=== PATIENT | male | born 1960 | race African-American/Black ===

== ENCOUNTER 2018-02-11 13:35 | Emergency (ER) | payer SELFPAY ==
[2018-02-11] MEDS ORDERED: DIPHENHYDRAMINE HCL 50 MG/ML VIAL IV ONE (14:10)
[2018-02-11] MEDS ORDERED: METOCLOPRAMIDE HCL INJ/PF 10 MG/2 ML SDV IV ONE (14:10)
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
[2018-02-11] MEDS: NORMAL SALINE 1000 ML 1,000 ML IV PRN ×2 (14:26→15:27)
[2018-02-11 14:44] LABS: ABSOLUTE BASOPHILS # (AUTO) 0.1 10^3/uL (0.0-0.2); ABSOLUTE LYMPHOCYTES (AUTO) 1.7 10^3/uL (0.5-4.7); ABSOLUTE MONOCYTES (AUTO) 0.6 10^3/uL (0.1-1.4); BASOPHILS % (AUTO) 0.7 % (0-2); EOSINOPHILS % (AUTO) 0.1 % (0-6); HEMATOCRIT 38.5 % (37.9-51.0); HEMOGLOBIN 12.7 g/dL (13.5-17.0); LYMPHOCYTES % (AUTO) 17.6 % (13-45); MEAN CORPUSCULAR HEMOGLOBIN 25.6 pg (27.0-33.4); MEAN CORPUSCULAR HGB CONC 32.9 g/dL (32.0-36.0); MEAN CORPUSCULAR VOLUME 78 fl (80-97); MONOCYTES % (AUTO) 6.6 % (3-13); PLATELET COUNT 458 10^3/uL (150-450); RED BLOOD COUNT 4.95 10^6/uL (4.35-5.55); RED CELL DISTRIBUTION WIDTH 21.2 % (11.5-14.0); TOTAL CELLS COUNTED % (AUTO) 100 %; WHITE BLOOD COUNT 9.4 10^3/uL (4.0-10.5)
[2018-02-11 15:04] LABS: ALANINE AMINOTRANSFERASE 25 U/L (21-72); ALBUMIN 4.8 g/dL (3.5-5.0); ALKALINE PHOSPHATASE 110 U/L (38-126); ANION GAP 14 (5-19); ASPARTATE AMINO TRANSFERASE 42 U/L (17-59); BILIRUBIN,DIRECT 0.4 mg/dL (0.0-0.4); BILIRUBIN,TOTAL 0.7 mg/dL (0.2-1.3); BLOOD UREA NITROGEN 13 mg/dL (7-20); CARBON DIOXIDE 27 mmol/L (22-30); CHLORIDE 96 mmol/L (98-107); GLUCOSE 98 mg/dL (75-110); POTASSIUM 3.7 mmol/L (3.6-5.0); SODIUM 137.2 mmol/L (137-145); TOTAL PROTEIN 9.5 g/dL (6.3-8.2)
[2018-02-11] MEDS ORDERED: ONDANSETRON ODT 4 MG TAB (6 TAB/ER DISP) PO PRN (16:32)
[2018-02-11 16:34] VITALS: BP 136/86
== END 2018-02-11 16:35 | disposition home or self-care (01) ==
LOC: ER 13:35
DX: R11.2 Nausea with vomiting, unspecified (principal)
CPT/HCPCS: 99283; 96361; 96374; 96375; 36415; 85025; 80053; J1200; J2765

== ENCOUNTER 2018-11-28 11:09 | Emergency (ER) | payer SELFPAY ==
[2018-11-28] MEDS ORDERED: ONDANSETRON HCL INJ/PF 4 MG/2 ML SDV IV ONE ×2 (11:23→16:05)
--- NOTE | 2018-11-28 11:24 | ER Document Report ---
ED Medical Screen (RME) - General Chief Complaint: Abdominal Pain >50 Stated Complaint: STOMACH PAIN/VOMITING Time Seen by Provider: 11/28/18 11:22 Primary Care Provider: NICOLE STEVENSON [Primary Care Provider] - Follow up as needed Mode of Arrival: Wheelchair Information source: Patient Notes: 57-year-old male presented to ED for complaint of abdominal pain nausea and v omiting. He denies any diarrhea. He states just feels weak and sleepy. 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 He states he lives alone. Patient is alert oriented but states he is feeling very weak tired and sleepy. I have greeted and performed a rapid initial assessment of this patient. A comprehensive ED assessment and evaluation of the patient, analysis of test results and completion of medical decision making process will be conducted by an additional ED providers. Dictation of this chart was performed using voice recognition software; therefore, there may be some unintended grammatical errors. TRAVEL OUTSIDE OF THE [place] IN LAST 30 DAYS: No - Related Data Allergies/Adverse Reactions: No Known Allergies Allergy (Verified 11/28/18 11:09) Past Medical History - Social History Chew tobacco use (# tins/day): No Frequency of alcohol use: Occasional Family history: None Renal/ Medical History: Denies: Hx Peritoneal Dialysis Physical Exam - Vital signs Vitals: Temp Pulse Resp BP Pulse Ox 98.0 F 49 L 14 154/84 H 100 11/28/18 11:19 11/28/18 11:19 11/28/18 11:19 11/28/18 11:19 11/28/18 11:19 Course - Vital Signs Vital signs: Temp Pulse Resp BP Pulse Ox 98.0 F 49 L 14 154/84 H 100 11/28/18 11:19 11/28/18 11:19 11/28/18 11:19 11/28/18 11:19 11/28/18 11:19 Doctor's Discharge - Discharge Referrals: NICOLE STEVENSON [Primary Care Provider] - Follow up as needed
[2018-11-28] MEDS: NORMAL SALINE 1000 ML 1,000 ML IV PRN ×2 (12:59→14:41)
--- NOTE | 2018-11-28 14:21 | ER Document Report ---
HPI - HPI Patient complains to provider of: epigastric abdominal pain, vomiting, and constipation Time Seen by Provider: 11/28/18 11:22 Onset/Duration: Gradual, Intermittent Quality of pain: Burning, Cramping Pain Level: 2 Context: 58 yr old male pt with the listed pmh, here for a few episodes of nonbloody nonbilious vomiting, constipation, and epigastric abdominal pain for 2 days. feels like he may have gerd or an ulcer. states sx started after he drank a bunch of different types of etoh with friends the night prior to two days ago. states usually he doesn't drink like that or that much. no trauma or injury. no hx of diabetes or asthma. no uti sx. no testicular pain/swelling, penile dc/rash/lesions, or concerns for stds. denies swelling or hx of hernias. no abd surgeries unless otherwise noted. no recent abx or steroids. hasn't taken anything for sx. no hx of gerd, gb dz, pancreatitis, gi bleed, ulcers, ibs, or crohns. no hx of this before. he takes no meds regularly. no sick contacts. no uri sx. no rash. no excessive nsaid use. no recent illness. pain a little worse with eating. denies changes in color or caliber of stool. no melena or brbpr. no hemorrhoids or rectal pain. no blood thinners. Pt denies any prior personal cardiac history. denies any family history of sudden or cardiac dz at a young age. no syncope. no palpitations. no hx of mi, cva, tia, or cad. no ripping or tearing sensation. No prior history of blood clots. No recent long distance travel/immobilization, recent surgery, exogenous hormone use, hemoptysis, history of cancer, or calf pain/swelling. No prior history of arrhythmias. no other associated sx. Associated Symptoms: Nausea, Vomiting. denies: Chest pain, Nonproductive cough, Productive cough, Diarrhea, Fever, Headache, Hurts to breath, Leg swelling Exacerbated by: Movement, Food Relieved by: Remaining still Similar symptoms previously: No Recently seen / treated by doctor: No - ROS Systems Reviewed and Negative: Yes All other systems reviewed and negative - to include 10, unless mentioned in the hpi - DERM Skin Color: Normal Past Medical History - General Information source: Patient - Social History Smoking Status: Never Smoker Cigarette use (# per day): No Chew tobacco use (# tins/day): No Frequency of alcohol use: Occasional Drug Abuse: Marijuana - occasional Family History: Reviewed & Not Pertinent Patient has suicidal ideation: No Patient has homicidal ideation: No - Past Medical History Cardiac Medical History: Reports: None Pulmonary Medical History: Reports: None Endocrine Medical History: Reports: None Renal/ Medical History: Denies: Hx Kidney Stones, Hx Peritoneal Dialysis Malignancy Medical History: Reports None GI Medical History: Reports: None Past Surgical History: Reports: Hx Orthopedic Surgery - right partial thumb amputation with revision - Immunizations Immunizations up to date: Yes Vertical Provider Document - CONSTITUTIONAL Notes: >>>> PHYSICAL_EXAM: GENERAL_APPEARANCE: well_nourished, alert, cooperative, no_acute_distress, mild obvious_discomfort. Pleasant, middle aged black male, smiling, speaking in full sentences, easily sitting up, in no sign of pain or resp distress, nontoxic, no one is with him, he has an emesis bag in hand. no active vomiting on my exam. some dry heaves. VITALS: reviewed, see vital signs table. HEAD: normocephalic. atraumatic. no nobles signs. no raccoon eyes. EYES: PERRL, EOMI, (-)scleral icterus. NOSE: no_nasal_discharge. MOUTH: (-)decreased moisture. THROAT: no_tonsilar_inflammation/hypertrophy/exudate. no lymphadenopathy NECK: supple, no_neck_tenderness, full rom. full strength. no meningeal signs. BACK: no_back_tenderness. CHEST_WALL: no_chest_tenderness. LUNGS: no_wheezing, (-)accessory muscle use, good air exchange bilateral. HEART: normal_rate, normal_rhythm,, ABDOMEN: normal_BS, soft, abdomen-diffuse, mildly ttp diffusely, worse in the epigastrium, not so much when distracted, (-)guarding, (-)rebound, no distension or peritoneal signs. neg murphys. neg mcburneys. neg heel strike. neg obturator. neg psoas. neg rovsign. no cva tenderness GENITALS: deferred RECTAL: deferred EXTREMITIES: strength 5/5 in all_extremities, good pulses in all_extremities, no_edema, no_swelling\tenderness. full rom. normal gait. brisk cap refill. good hand glass sander belt. chronic appearing well healed surgery/partial amputation of right yesi mb. no sign of complication. SKIN: warm, dry, good_color, no rash. no grossly visible overlying skin changes to suggest trauma unless otherwise noted. NEURO: motor_intact, sensory_intact. cranial nerves 2-12 intact, cerebellar fxn intact MENTAL_STATUS: normal_affect, speech_clear, oriented_X_3, responds_appropriately to questions. - INFECTION CONTROL TRAVEL OUTSIDE OF THE [place] IN LAST 30 DAYS: No Course - Re-evaluation Re-evalutation: 11/28/18 14:21 pt here for epigastric abd pain, constipation, and a few episodes of nonbloody nonbilious vomiting x 2 days after what sounds like a night of binge drinking as usually he doesn't drink much liquor, in excess, or often per pt, and have several different types of etoh the night prior to sx onset. labs notable for a mild anemia which is minimally lower from last old comparison which is about a year ago however, a mildly elevated lipase, but were otherwise unremarkable. ekg unremarkable per dr swanson/natalya. acute abd series showed an abnormal bowel gas pattern, some air fluid levels, and excessive stool in the ascending colon and recommended ct abd/pelv with iv and oral contrast for further eval per rad and reviewed by myself. secondary to this, a ct abd and pelv with iv contrast was ordered as pt at the time couldn't tolerate po contrast, and showed mild small bowel wall thickening and mesenteric inflammatory changes -free fluid, probable enteritis, no dilatation to suggest obstruction, a 7.6 cm length by 2.6 x 2.2 cm cystic area adjacent to the right acetabulum and tracking into the gluteus minimus -medius muscular junction, possibly a large paralabral cyst however other etiologies cannot be excluded, rad recommended MRI with contrast would be useful to further characterize this likely cyst per rad and reviewed by myself. pt informed of his findings. he responded well to tx here. he is tolerating po and pain controlled. he denies blood in his stool or melena and endorses normal bms. no prior hx of anemia or ulcers or gi bleed. serial abd exams remain benign. will dc with prilosec and zofran. advised sx care. advised bland diet and avoid nsaids and etoh. advised to f/u with pcp/gi in 1-2 days. return for any worsening symptoms. vss. well appearing. satting well on ra. neurononfocal. pt understands and agrees to plan. On reexam, pt improved with tx listed. remained stable. nontoxic. well appearin g. pain controlled. tolerating po. requesting to go home. serial abd exams remain benign case discussed with ER Attending, Dr. haas, who directed and agrees with plan of care and advised no further workup indicated at this time and pt is stable for dc home with close f/u with pcp/specialist. Documentation achieved through voice recording which my lead to some occasional accidental typographical errors. Extensive efforts have been made to proof read documentation to make sure these are the least as possible. Category Date Time Status EKG Documentation STAT Care 11/28/18 11:25 Completed ACUTE ABDOMEN SERIES [RAD] Stat Exams 11/28/18 16:[address] ABD/PELVIS WITH IV ONLY [CT] Stat Exams 11/28/18 17:08 Completed CBC WITH DIFF [HEME] Stat Lab 11/28/18 16:50 Completed COMPREHENSIVE METABOLIC PANEL [CHEM] Stat Lab 11/28/18 16:50 Completed LIPASE [CHEM] Stat Lab 11/28/18 16:50 Completed MANUAL DIFFERENTIAL [HEME] Stat Lab 11/28/18 16:50 Completed TROPONIN I [CHEM] Stat Lab 11/28/18 16:50 Completed URINALYSIS [URIN] Stat Lab 11/28/18 14:00 Completed URINE CULTURE [MC] Stat Lab 11/28/18 14:00 Completed Lidocaine HCl [Xylocaine 2% Viscous Soln 20 ml Udcup] Med 11/28/18 16:02 Discontinued 15 ml PO NOW ONE Mag Hydrox/Al Hydrox/Simeth [Maalox Plus Susp 30 Udcup] Med 11/28/18 16:02 Discontinued 30 ml PO NOW ONE Normal Saline 1000 ml [NaCl 0.9% 1000 ml IV Soln] 1,000 Med 11/28/18 11:22 Discontinued ml IV X 2 BAGS Ondansetron HCl/Pf [Zofran Inj/Pf 4 mg/2 ml Sdv] Med 11/28/18 11:23 Discontinued 4 mg IV NOW ONE Ondansetron HCl/Pf [Zofran Inj/Pf 4 mg/2 ml Sdv] Med 11/28/18 16:05 Discontinued 4 mg IV NOW ONE EKG ER ONLY [ER] Stat Oth 11/28/18 Completed - Vital Signs Vital signs: Temp Pulse Resp BP Pulse Ox 98.0 F 49 L 14 154/84 H 100 11/28/18 11:19 11/28/18 11:19 11/28/18 11:19 11/28/18 11:19 11/28/18 11:19 Temp Pulse Pulse Resp BP BP Pulse Ox 11/28/18 21:06 98.3 F 55 L 18 124/76 97 11/28/18 15:06 98.6 F 56 L 16 148/84 H 100 11/28/18 11:19 98.0 F 49 L 14 154/84 H 100 - Laboratory Result Diagrams: 11/28/18 16:50 11/28/18 16:50 Laboratory results interpreted by me: 11/28/18 20:24 Labs- Entire Visit 11/28/18 11/28/18 11/28/18 14:00 16:50 16:50 WBC 5.0 RBC 4.64 Hgb 10.1 L Hct 33.3 L MCV 72 L MCH 21.8 L MCHC 30.4 L RDW 21.2 H Plt Count 443 Total Counted 100 Seg Neutrophils % Not Reportable Seg Neuts % (Manual) 68 Lymphocytes % Not Reportable Lymphocytes % (Manual) 18 Monocytes % Not Reportable Monocytes % (Manual) 13 Eosinophils % Not Reportable Eosinophils % (Manual) 0 Basophils % Not Reportable Basophils % (Manual) 1 Absolute Neutrophils Not Reportable Abs Neuts (Manual) 3.4 Absolute Lymphocytes Not Reportable Abs Lymphs (Manual) 0.9 Absolute Monocytes Not Reportable Abs Monocytes (Manual) 0.7 Absolute Eosinophils Not Reportable Absolute Eos (Manual) 0.0 Absolute Basophils Not Reportable Abs Basophils (Manual) 0.1 Platelet Comment ADEQUATE Hypochromasia 3+ Poikilocytosis 1+ Anisocytosis 3+ Microcytosis 1+ Target Cells 1+ Sodium 137.3 Potassium 4.1 Chloride 100 Carbon Dioxide 28 Anion Gap 9 BUN 8 Creatinine 0.89 Est GFR ( Amer) > 60 Est GFR (Non-Af Amer) > 60 Glucose 119 H Calcium 9.1 Total Bilirubin 0.4 Direct Bilirubin 0.2 Neonat Total Bilirubin Not Reportable Neonat Direct Bilirubin Not Reportable Neonat Indirect Bili Not Reportable AST 23 ALT 20 L Alkaline Phosphatase 72 Troponin I Total Protein 7.4 Albumin 4.0 Lipase 474.9 H Urine Color YELLOW Urine Appearance CLOUDY Urine pH 9.0 Ur Specific Oneco 1.025 Urine Protein 100 H Urine Glucose (UA) NEGATIVE Urine Ketones NEGATIVE Urine Blood NEGATIVE Urine Nitrite NEGATIVE Urine Bilirubin NEGATIVE Urine Urobilinogen NEGATIVE Ur Leukocyte Esterase NEGATIVE Urine RBC (Auto) 11 Urine Bacteria (Auto) TRACE Squamous Epi Cells Auto 1 Amorphous Sediment Auto TRACE Urine Mucus (Auto) OCC Urine Ascorbic Acid 40 H 11/28/18 16:50 WBC RBC Hgb Hct MCV MCH MCHC RDW Plt Count Total Counted Seg Neutrophils % Seg Neuts % (Manual) Lymphocytes % Lymphocytes % (Manual) Monocytes % Monocytes % (Manual) Eosinophils % Eosinophils % (Manual) Basophils % Basophils % (Manual) Absolute Neutrophils Abs Neuts (Manual) Absolute Lymphocytes Abs Lymphs (Manual) Absolute Monocytes Abs Monocytes (Manual) Absolute Eosinophils Absolute Eos (Manual) Absolute Basophils Abs Basophils (Manual) Platelet Comment Hypochromasia Poikilocytosis Anisocytosis Microcytosis Target Cells Sodium Potassium Chloride Carbon Dioxide Anion Gap BUN Creatinine Est GFR ( Amer) Est GFR (Non-Af Amer) Glucose Calcium Total Bilirubin Direct Bilirubin Neonat Total Bilirubin Neonat Direct Bilirubin Neonat Indirect Bili AST ALT Alkaline Phosphatase Troponin I < 0.012 Total Protein Albumin Lipase Urine Color Urine Appearance Urine pH Ur Specific Oneco Urine Protein Urine Glucose (UA) Urine Ketones Urine Blood Urine Nitrite Urine Bilirubin Urine Urobilinogen Ur Leukocyte Esterase Urine RBC (Auto) Urine Bacteria (Auto) Squamous Epi Cells Auto Amorphous Sediment Auto Urine Mucus (Auto) Urine Ascorbic Acid - Diagnostic Test Radiology reviewed: Image reviewed, Reports reviewed Radiology results interpreted by me: 11/28/18 20:24 Acute Abdomen Series 11/28/18 16:02 IMPRESSION: Large amount of stool in the ascending colon. Abnormal air-fluid levels in small bowel loops in the left upper quadrant. Abnormal bowel gas pattern. Consider follow-up CT abdomen pelvis with oral and IV contrast Abdomen/Pelvis CT 11/28/18 17:08 IMPRESSION: Mild small bowel wall thickening and mesenteric inflammatory changes -free fluid, probable enteritis. No dilatation to suggest obstruction. There is a 7.6 cm length by 2.6 x 2.2 cm cystic area adjacent to the right acetabulum and tracking into the gluteus minimus -medius muscular junction, possibly a large paralabral cyst however other etiologies cannot be excluded. MRI with contrast would be useful to further characterize. - EKG Interpretation by Me EKG shows normal: Sinus rhythm - 51 bpm, no stemi, no old avail for comparison, reviewed by dr swanson Rate: Normal Rhythm: NSR When compared to previous EKG there are: Previous EKG unavailable Discharge - Discharge Clinical Impression: Paralabral cyst of right hip, Enteritis Abdominal pain Qualifiers: Abdominal location: epigastric Qualified Code(s): R10.13 - Epigastric pain Vomiting Qualifiers: Vomiting type: unspecified Vomiting Intractability: non-intractable Nausea presence: with nausea Qualified Code(s): R11.2 - Nausea with vomiting, unspecified Pancreatitis Qualifiers: Chronicity: acute Pancreatitis type: unspecified pancreatitis type Acute pancreatitis complication: unspecified Qualified Code(s): K85.90 - Acute pancreatitis without necrosis or infection, unspecified Gastritis Qualifiers: Gastritis type: unspecified gastritis Chronicity: acute Gastritis bleeding: presence of bleeding unspecified Qualified Code(s): K29.00 - Acute gastritis without bleeding Anemia Qualifiers: Anemia type: unspecified type Qualified Code(s): D64.9 - Anemia, unspecified Constipation Qualifiers: Constipation type: unspecified constipation type Qualified Code(s): K59.00 - Constipation, unspecified Condition: Good Disposition: HOME, SELF-CARE Instructions: Abdominal Pain ([facility]), Vomiting ([facility]) Additional Instructions: Follow-up with PCP/GI 1 to 2 days. Return for any worsening symptoms. [place] diet. Avoid alcohol and nsaids and blood thinners. Take the medication as prescribed. Drink plenty of fluids. Prescriptions: Omeprazole Magnesium [Prilosec Otc] 20 mg PO DAILY #30 tablet. Ondansetron [Zofran Odt 4 mg Tablet] 1 tab PO Q8 PRN #15 tab.rapdis PRN Reason: For Nausea/Vomiting Referrals: LOCALMD,NO [NO LOCAL MD] - Follow up in 3-5 days
[2018-11-28 15:55] LABS: AMORPHOUS SEDIMENT,URINE TRACE /HPF; APPEARANCE,URINE CLOUDY; BILIRUBIN,URINE NEGATIVE (NEGATIVE); COLOR,URINE YELLOW; GLUCOSE, URINE NEGATIVE (NEGATIVE); KETONES,URINE NEGATIVE (NEGATIVE)
[2018-11-28 15:56] LABS: LEUKOCYTE ESTERASE,URINE NEGATIVE (NEGATIVE); NITRITE,URINE NEGATIVE (NEGATIVE); PROTEIN,URINE 100 mg/dL (NEGATIVE); URINE SPECIFIC GRAVITY 1.025; UROBILINOGEN,URINE NEGATIVE mg/dL (<2.0)
[2018-11-28] MEDS ORDERED: MAG HYDROX/AL HYDROX/SIMETH SUSP 30 ML UDCUP PO ONE (16:02)
[2018-11-28] MEDS ORDERED: LIDOCAINE 2% VISCOUS SOLN 20 ML UDCUP PO ONE (16:02)
--- NOTE | 2018-11-28 16:55 | RADIOLOGY REPORT (SQ) ---
EXAM DESCRIPTION: ACUTE ABDOMEN SERIES COMPLETED DATE/TIME: 11/28/2018 4:35 pm REASON FOR STUDY: vomiting COMPARISON: None. NUMBER OF VIEWS: Three views. TECHNIQUE: Frontal chest, supine abdomen and upright abdomen radiographic images acquired. LIMITATIONS: None. FINDINGS: CHEST: Lungs clear of infiltrates. FREE AIR: None. No abnormal gas collections. BOWEL GAS PATTERN: Moderate stool in the ascending colon. Few air-fluid levels in small bowel loops in the left upper quadrant. This is an abnormal bowel gas pattern CALCIFICATIONS: No suspicious calcifications. HARDWARE: None in the abdomen. SOFT TISSUES: No gross mass or suggestion of organomegaly. BONES: No acute fracture. No worrisome bone lesions. OTHER: No other significant finding. IMPRESSION: Large amount of stool in the ascending colon. Abnormal air-fluid levels in small bowel loops in the left upper quadrant. Abnormal bowel gas pattern. Consider follow-up CT abdomen pelvis with oral and IV contrast TECHNICAL DOCUMENTATION: JOB ID: [id number] [employer]- All Rights Reserved Reading location - IP/workstation name: [email or web address]
[2018-11-28 17:13] LABS: HEMATOCRIT 33.3 % (37.9-51.0); HEMOGLOBIN 10.1 g/dL (13.5-17.0); MEAN CORPUSCULAR HEMOGLOBIN 21.8 pg (27.0-33.4); MEAN CORPUSCULAR HGB CONC 30.4 g/dL (32.0-36.0); MEAN CORPUSCULAR VOLUME 72 fl (80-97); PLATELET COUNT 443 10^3/uL (150-450); RED BLOOD COUNT 4.64 10^6/uL (4.35-5.55); RED CELL DISTRIBUTION WIDTH 21.2 % (11.5-14.0)
[2018-11-28 17:23] LABS: ALANINE AMINOTRANSFERASE 20 U/L (21-72); ALKALINE PHOSPHATASE 72 U/L (38-126); ANION GAP 9 (5-19); ASPARTATE AMINO TRANSFERASE 23 U/L (17-59); BILIRUBIN,DIRECT 0.2 mg/dL (0.0-0.4); BILIRUBIN,TOTAL 0.4 mg/dL (0.2-1.3); BLOOD UREA NITROGEN 8 mg/dL (7-20); CALCIUM 9.1 mg/dL (8.4-10.2); CARBON DIOXIDE 28 mmol/L (22-30); CHLORIDE 100 mmol/L (98-107); GLUCOSE 119 mg/dL (75-110); POTASSIUM 4.1 mmol/L (3.6-5.0); TOTAL PROTEIN 7.4 g/dL (6.3-8.2)
[2018-11-28 17:42] LABS: ABSOLUTE LYMPHOCYTES# (MANUAL) 0.9 10^3/uL (0.5-4.7); ABSOLUTE MONOCYTES # (MANUAL) 0.7 10^3/uL (0.1-1.4); BASOPHILS % (MANUAL) 1 % (0-2); EOSINOPHILS % (MANUAL) 0 % (0-6); LYMPHOCYTES % (MANUAL) 18 % (13-45); MONOCYTES % (MANUAL) 13 % (3-13); SEGMENTED NEUTROPHILS % (MAN) 68 % (42-78); TOTAL CELLS COUNTED 100
[2018-11-28 17:44] LABS: ANISOCYTOSIS 3+; HYPOCHROMASIA 3+; PLATELET COMMENT ADEQUATE; POIKILOCYTOSIS 1+; TARGET CELLS 1+
--- NOTE | 2018-11-28 19:26 | EKG REPORT ---
SEVERITY:- NORMAL ECG - SINUS RHYTHM : Confirmed by: Lizy Palacio MD 28-Nov-2018 19:25:49
--- NOTE | 2018-11-28 19:29 | RADIOLOGY REPORT (SQ) ---
EXAM DESCRIPTION: CT ABD/PELVIS WITH IV ONLY COMPLETED DATE/TIME: 11/28/2018 6:57 pm REASON FOR STUDY: diffuse upper abd pain, constip, vom x 2d COMPARISON: None. TECHNIQUE: CT scan of the abdomen and pelvis performed using helical scanning technique with dynamic intravenous contrast injection. No oral contrast. Images reviewed with lung, soft tissue, and bone w indows. Reconstructed coronal and sagittal MPR images reviewed. Delayed images for evaluation of the urinary system also acquired. All images stored on PACS. All CT scanners at this facility use dose modulation, iterative reconstruction, and/or weight based d osing when appropriate to reduce radiation dose to as low as reasonably achievable (ALARA). [facility]: Dose Right [facility]: CareDose [facility]: Dose Right [facility]: Teradose 4D [facility]: [employer] CONTRAST TYPE AND DOSE: contrast/concentration: Isovue 350.00 mg/ml; Total Contrast Delivered: 90.0 ml; Total Saline Delivered: 70.0 ml RENAL FUNCTION: GFR > 60. RADIATION DOSE: CT Rad equipment meets quality standard of care and radiation dose reduction techniq ues were employed. CTDIvol: 5.9 - 6.8 mGy. DLP: 605 mGy-cm.. LIMITATIONS: None. FINDINGS: LOWER CHEST: No significant findings. LIVER: Normal size. No enhancing masses. No dilated ducts. SPLEEN: Normal size. No focal lesions. PANCREAS: No masses identified. No significant calcifications. No adjacent inflammation or peripancre atic fluid collections. Pancreatic duct not dilated. GALLBLADDER: No calcified stones. No inflammatory changes to suggest cholecystitis. ADRENAL GLANDS: No significant masses. RIGHT KIDNEY AND URETER: No cysts identified. No solid masses identified. No calcified stones. No hyd ronephrosis or hydroureter. LEFT KIDNEY AND URETER: No cysts identified. No solid masses identified. No calcified stones. No hydr onephrosis or hydroureter. AORTA AND VESSELS: No aneurysm. No dissection. Renal arteries, SMA, celiac without significant stenos is. RETROPERITONEUM: No bulky retroperitoneal adenopathy. BOWEL AND PERITONEAL CAVITY: Mild small bowel wall thickening and mesenteric inflammatory changes -f ree fluid. No dilatation to suggest obstruction. . APPENDIX: Normal. PELVIS: There is a 7.6 cm length by 2.6 x 2.2 cm cystic area adjacent to the right acetabulum and tra cking into the gluteus minimus -medius muscular junction. Small amount of free fluid. Unremarkable b ladder. ABDOMINAL WALL: No masses. No hernias. BONES: No acute findings. OTHER: No other significant finding. IMPRESSION: Mild small bowel wall thickening and mesenteric inflammatory changes -free fluid, probab le enteritis. No dilatation to suggest obstruction. There is a 7.6 cm length by 2.6 x 2.2 cm cystic area adjacent to the right acetabulum and tracking in to the gluteus minimus -medius muscular junction, possibly a large paralabral cyst however other etio logies cannot be excluded. MRI with contrast would be useful to further characterize. TECHNICAL DOCUMENTATION: JOB ID: [id number] Quality ID # [id number]: Final reports with documentation of one or more dose reduction techniques (e.g., Au tomated exposure control, adjustment of the mA and/or kV according to patient size, use of iterative reconstruction technique) 2010 [employer]- All Rights Reserved Reading location - IP/workstation name: [email or web address]
[2018-11-28 21:08] VITALS: BP 124/76
== END 2018-11-28 21:07 | disposition home or self-care (01) ==
LOC: ER 11:09
DX: K29.00 Acute gastritis without bleeding (principal); K59.00 Constipation, unspecified; K52.9 Noninfective gastroenteritis and colitis, unspecified; D64.9 Anemia, unspecified; K85.90 Acute pancreatitis without necrosis or infection, unspecified; M24.851 Other specific joint derangements of right hip, not elsewhere classified; R11.2 Nausea with vomiting, unspecified; R10.13 Epigastric pain; F12.10 Cannabis abuse, uncomplicated; R10.817 Generalized abdominal tenderness
CPT/HCPCS: 93005; 96376; 99284; 96361; 96374; 36415; 87086; 83690; 85025; 80053; 81001; 84484; 74022; 74177; 93010; J3490; J2405; J7030

== ENCOUNTER 2019-02-25 13:20 | Emergency (ER) | payer SELFPAY ==
[2019-02-25] MEDS ORDERED: NORMAL SALINE 1000 ML 1,000 ML IV ONE (13:43)
[2019-02-25] MEDS ORDERED: ONDANSETRON HCL INJ/PF 4 MG/2 ML SDV IV ONE (13:43)
[2019-02-25 15:25] LABS: AMORPHOUS SEDIMENT,URINE TRACE /HPF; APPEARANCE,URINE CLOUDY; BILIRUBIN,URINE NEGATIVE (NEGATIVE); COLOR,URINE YELLOW; GLUCOSE, URINE NEGATIVE (NEGATIVE); KETONES,URINE NEGATIVE (NEGATIVE); LEUKOCYTE ESTERASE,URINE NEGATIVE (NEGATIVE); NITRITE,URINE NEGATIVE (NEGATIVE); PROTEIN,URINE 30 mg/dL (NEGATIVE); URINE SPECIFIC GRAVITY 1.015; UROBILINOGEN,URINE NEGATIVE mg/dL (<2.0)
[2019-02-25] MEDS ORDERED: MORPHINE SULFATE 10 MG/ML INJ IV ONE (15:26)
--- NOTE | 2019-02-25 15:29 | ER Document Report ---
ED General - General Chief Complaint: Abdominal Pain Stated Complaint: ABDOMINAL PAIN Time Seen by Provider: 02/25/19 13:43 Primary Care Provider: MEG BLAKE MD [ACTIVE STAFF] - Follow up in 3-5 days (primary care. ) Notes: Patient is a 58-year-old male that presents to the emergency department for chief complaint of abdominal pain. Patient states that this morning shortly after eating a Salsberry steak he started feeling severe abdominal pain, to the point he made him tearful, and cause vomiting. He does feel somewhat better from earlier. He states the pain is mainly in the right lower portion of his abdomen. Denies having any flank pain. Denies any recent fevers, chills, night sweats, dysuria, hematuria or diarrhea. He reports is otherwise healthy. He currently rates his pain as a 4 out of 10 describes it as a constant aching sensation however was sharper earlier in rated as a 10 out of 10. Past Medical History: Denies chronic medical conditions Past Surgical History: Right thumb amputation for Social History: Denies tobacco, alcohol or drug use. Family History: Reviewed and noncontributory for presenting illness Allergies: Reviewed, see documented allergy list. REVIEW OF SYSTEMS: Other than noted above, the 12 point review of systems was reviewed with the patient and were negative, all pertinent findings are included in the HPI. PHYSICAL EXAMINATION: Vital signs reviewed, nursing noted reviewed. GENERAL: Well-appearing, well-nourished and in no acute distress. HEAD: Atraumatic, normocephalic. EYES: Eyes appear normal, extraocular movements intact, sclera anicteric, conjunctiva are normal. ENT: nares patent, oropharynx clear without exudates. Moist mucous membranes. NECK: Normal range of motion, supple without lymphadenopathy LUNGS: Breath sounds clear to auscultation bilaterally and equal. No wheezes rales or rhonchi. HEART: Regular rate and rhythm without murmurs ABDOMEN: Soft, mild right lower quadrant tenderness to palpation, without rebound or rigidity, normoactive bowel sounds. No rebound, guarding, or rigidity. No masses appreciated. No CVA tenderness. EXTREMITIES: Nontender, good range of motion, no pitting or edema. Right thumb amputation noted. NEUROLOGICAL: No focal neurological deficits. Moves all extremities spontaneously Motor and sensory grossly intact on exam. PSYCH: Normal mood, normal affect. SKIN: Warm, Dry, normal turgor, no rashes or lesions noted on exposed skin TRAVEL OUTSIDE OF THE [place] IN LAST 30 DAYS: No - Related Data Allergies/Adverse Reactions: No Known Allergies Allergy (Verified 11/28/18 11:09) Past Medical History - Social History Smoking Status: Never Smoker Frequency of alcohol use: Social Drug Abuse: Marijuana Family History: Reviewed & Not Pertinent Patient has suicidal ideation: No Patient has homicidal ideation: No Renal/ Medical History: Denies: Hx Kidney Stones, Hx Peritoneal Dialysis Past Surgical History: Reports: Hx Orthopedic Surgery - right partial thumb amputation with revision - Immunizations Immunizations up to date: Yes Physical Exam - Vital signs Vitals: Temp Pulse Resp BP Pulse Ox 98.6 F 63 17 158/76 H 100 02/25/19 13:44 02/25/19 13:44 02/25/19 13:44 02/25/19 13:44 02/25/19 13:44 Course - Re-evaluation Re-evalutation: Patient seen and examined vital signs reviewed. Laboratory data and/or imaging were ordered as appropriate for the patient's presenting symptoms and complaint, with consideration of any critical or life threatening conditions that may be associated with their obtained history and exam as noted above. Patient was treated with IV fluids, morphine and Zofran Results were reviewed when available and demonstrated CT demonstrated stool burden, questionable haziness to the kidneys, however this does not correlate with the patient's blood work, or urinalysis, patient made aware of possible cyst on his hip, he states he was aware that from prior imaging. The patient was re-evaluated and was stable, still having some abdominal pain, is given Bentyl, and Toradol Evaluation was most consistent with constipation abdominal pain, advised MiraLAX, and Bentyl and to follow-up with primary care Results were discussed with the patient at this point, after careful consideration I feel that that patient can be discharged from the emergency department, the patient was educated treatments and reasons to return to the emergency department based on their presumed diagnosis as noted above, they were advised to followup with a primary care physician in 2-3 days. Patient was agreeable to plan of care. *Note is created using voice recognition software and may contain spelling, syntax or grammatical errors. Laboratory 02/25/19 02/25/19 02/25/19 15:04 15:25 15:25 WBC 7.6 RBC 4.67 Hgb 11.2 L Hct 36.3 L MCV 78 L MCH 24.0 L MCHC 30.9 L RDW 20.4 H Plt Count 439 Lymph % (Auto) Not Reportable [place] % (Auto) Not Reportable Eos % (Auto) Not Reportable Baso % (Auto) Not Reportable Absolute Neuts (auto) Not Reportable Absolute Lymphs (auto) Not Reportable Absolute Monos (auto) Not Reportable Absolute Eos (auto) Not Reportable Absolute Basos (auto) Not Reportable Total Counted 100 Seg Neutrophils % Not Reportable Seg Neuts % (Manual) 77 Lymphocytes % (Manual) 15 Monocytes % (Manual) 8 Eosinophils % (Manual) 0 Basophils % (Manual) 0 Abs Neuts (Manual) 5.9 Abs Lymphs (Manual) 1.1 Abs Monocytes (Manual) 0.6 Absolute Eos (Manual) 0.0 Abs Basophils (Manual) 0.0 Platelet Comment ADEQUATE Anisocytosis 2+ Microcytosis SLIGHT Sodium 134.7 L Potassium 5.0 Chloride 95 L Carbon Dioxide 30 Anion Gap 10 BUN 15 Creatinine 1.03 Est GFR ( Amer) > 60 Est GFR (MDRD) Non-Af > 60 Glucose 120 H Calcium 9.9 Total Bilirubin 0.3 Direct Bilirubin 0.1 Neonat Total Bilirubin Not Reportable Neonat Direct Bilirubin Not Reportable Neonat Indirect Bili Not Reportable AST 25 ALT 16 Alkaline Phosphatase 84 Creatine Kinase Cancelled Total Protein 8.1 Albumin 4.2 Lipase 61.5 Urine Color YELLOW Urine Appearance CLOUDY Urine pH 8.0 Ur Specific [place] 1.015 Urine Protein 30 H Urine Glucose (UA) NEGATIVE Urine Ketones NEGATIVE Urine Blood NEGATIVE Urine Nitrite NEGATIVE Urine Bilirubin NEGATIVE Urine Urobilinogen NEGATIVE Ur Leukocyte Esterase NEGATIVE Urine WBC (Auto) 0 Urine RBC (Auto) 4 Urine Bacteria (Auto) TRACE Squamous Epi Cells Auto <1 Amorphous Sediment Auto TRACE Urine Mucus (Auto) RARE Urine Ascorbic Acid NEGATIVE Abdomen/Pelvis CT 02/25/19 15:28 IMPRESSION: 1. Patchy hypodense areas at the bilateral kidneys, may be secondary to acute infection/inflammation such as pyelonephritis. Please correlate with laboratory values/ urinalysis. 2. Large amount of stool at the ascending colon. 3. Redemonstration of cystic area at the anterior right hip extending to the right greater trochanter, may represent a large paralabral cyst versus trochanteric bursitis. Evaluation with MRI may be worthwhile. - Vital Signs Vital signs: Temp Pulse Resp BP Pulse Ox 98.1 F 71 18 143/84 H 100 02/25/19 18:10 02/25/19 18:10 02/25/19 18:10 02/25/19 18:10 02/25/19 18:10 - Laboratory Result Diagrams: 02/25/19 15:25 02/25/19 15:25 Laboratory results interpreted by me: 02/25/19 02/25/19 02/25/19 15:04 15:25 15:25 Hgb 11.2 L Hct 36.3 L MCV 78 L MCH 24.0 L MCHC 30.9 L RDW 20.4 H Sodium 134.7 L Chloride 95 L Glucose 120 H Urine Protein 30 H Discharge - Discharge Clinical Impression: Constipation Qualifiers: Constipation type: unspecified constipation type Qualified Code(s): K59.00 - Constipation, unspecified Abdominal pain Qualifiers: Abdominal location: unspecified location Qualified Code(s): R10.9 - Unspecified abdominal pain Condition: Stable Disposition: HOME, SELF-CARE Instructions: Abdominal Pain ([facility]) Additional Instructions: Please take the medications as prescribed, to help with pain, and to clear out the constipation. Prescriptions: Dicyclomine HCl [Bentyl 20 mg Tablet] 20 mg PO QID #40 tablet Polyethylene Glycol 3350 [Miralax] 17 gm PO DAILY #238 gm Referrals: MEG BLAKE MD [ACTIVE STAFF] - Follow up in 3-5 days (primary care. )
[2019-02-25 15:41] LABS: HEMATOCRIT 36.3 % (37.9-51.0); HEMOGLOBIN 11.2 g/dL (13.5-17.0); MEAN CORPUSCULAR HGB CONC 30.9 g/dL (32.0-36.0); MEAN CORPUSCULAR VOLUME 78 fl (80-97); PLATELET COUNT 439 10^3/uL (150-450); RED BLOOD COUNT 4.67 10^6/uL (4.35-5.55); RED CELL DISTRIBUTION WIDTH 20.4 % (11.5-14.0); WHITE BLOOD COUNT 7.6 10^3/uL (4.0-10.5)
[2019-02-25 16:00] LABS: ABSOLUTE LYMPHOCYTES# (MANUAL) 1.1 10^3/uL (0.5-4.7); ABSOLUTE MONOCYTES # (MANUAL) 0.6 10^3/uL (0.1-1.4); ALBUMIN 4.2 g/dL (3.5-5.0); ALKALINE PHOSPHATASE 84 U/L (38-126); ANION GAP 10 (5-19); ASPARTATE AMINO TRANSFERASE 25 U/L (17-59); BASOPHILS % (MANUAL) 0 % (0-2); BILIRUBIN,DIRECT 0.1 mg/dL (0.0-0.4); BILIRUBIN,TOTAL 0.3 mg/dL (0.2-1.3); BLOOD UREA NITROGEN 15 mg/dL (7-20); CALCIUM 9.9 mg/dL (8.4-10.2); CARBON DIOXIDE 30 mmol/L (22-30); CHLORIDE 95 mmol/L (98-107); EOSINOPHILS % (MANUAL) 0 % (0-6); GLUCOSE 120 mg/dL (75-110); LYMPHOCYTES % (MANUAL) 15 % (13-45); MONOCYTES % (MANUAL) 8 % (3-13); SEGMENTED NEUTROPHILS % (MAN) 77 % (42-78); TOTAL CELLS COUNTED 100; TOTAL PROTEIN 8.1 g/dL (6.3-8.2)
[2019-02-25 16:01] LABS: ANISOCYTOSIS 2+
[2019-02-25 16:02] LABS: PLATELET COMMENT ADEQUATE
--- NOTE | 2019-02-25 16:41 | RADIOLOGY REPORT (SQ) ---
EXAM DESCRIPTION: CT ABD/PELVIS WITH IV ONLY COMPLETED DATE/TIME: 02/25/2019 4:20 pm REASON FOR STUDY: rlq abdominal pain COMPARISON: CT abdomen and pelvis 11/28/2018 TECHNIQUE: CT scan of the abdomen and pelvis performed using helical scanning technique with dynamic intravenous contrast injection. No oral contrast. Images reviewed with lung, soft tissue, and bone windows. Reconstructed coronal and sagittal MPR images reviewed. Delayed images for evaluation of the urinary system also acquired. All images stored on PACS. All CT scanners at this facility use dose modulation, iterative reconstruction, and/or weight based d osing when appropriate to reduce radiation dose to as low as reasonably achievable (ALARA). [facility]: Dose Right [facility]: CareDose [facility]: Dose Right [facility]: Teradose 4D [facility]: [employer] CONTRAST TYPE AND DOSE: contrast/concentration: Isovue 350.00 mg/ml; Total Contrast Delivered: 94.0 ml; Total Saline Delivered: 51.0 ml RENAL FUNCTION: Creatinine 1.03 RADIATION DOSE: CT Rad equipment meets quality standard of care and radiation dose reduction techniq ues were employed. CTDIvol: NaN mGy. DLP: 0 mGy-cm.. LIMITATIONS: None. FINDINGS: LOWER CHEST: No consolidation or pleural effusion. LIVER: Normal size. Subcentimeter hypodensity at the anterior aspect of the left hepatic lobe (axial image 19/84), too small to be adequately characterized. No dilated ducts. SPLEEN: Normal size. PANCREAS: No significant calcifications. No adjacent inflammation or peripancreatic fluid collection s. Pancreatic duct not dilated. GALLBLADDER: No identified stones by CT criteria. No inflammatory changes to suggest cholecystitis. ADRENAL GLANDS: No significant masses or asymmetry. RIGHT KIDNEY AND URETER: Patchy hypodense areas at the right kidney. No significant calcifications. No hydronephrosis or hydroureter. LEFT KIDNEY AND URETER: Patchy hypodense areas at the left kidney. No significant calcifications. No hydronephrosis or hydroureter. AORTA AND VESSELS: No abdominal aortic aneurysm. RETROPERITONEUM: No retroperitoneal hemorrhage or masses. BOWEL AND PERITONEAL CAVITY: No dilated bowel loop or inflammatory changes. Large amount of stool no estefani at the ascending colon. No free fluid or free air. APPENDIX: Normal. PELVIS: No mass. No free fluid. The urinary bladder is distended. ABDOMINAL WALL: Redemonstration of cystic area at the anterior right hip extending to the right great er trochanter, measuring approximately 2.5 cm in thickness. There is a small fat containing umbilica l hernia. BONES: Multilevel degenerative changes at the spine. IMPRESSION: 1. Patchy hypodense areas at the bilateral kidneys, may be secondary to acute infection/ inflammation such as pyelonephritis. Please correlate with laboratory values/ urinalysis. 2. Large amount of stool at the ascending colon. 3. Redemonstration of cystic area at the anterior right hip extending to the right greater trochante r, may represent a large paralabral cyst versus trochanteric bursitis. Evaluation with MRI may be wo rthwhile. TECHNICAL DOCUMENTATION: JOB ID: [id number] Quality ID # [id number]: Final reports with documentation of one or more dose reduction techniques (e.g., Au tomated exposure control, adjustment of the mA and/or kV according to patient size, use of iterative reconstruction technique) 2010 [employer]- All Rights Reserved Reading location - IP/workstation name: [email or web address]
[2019-02-25] MEDS ORDERED: KETOROLAC TROMETHAMINE INJ/PF 30 MG/1 ML SDV IV ONE (17:42)
[2019-02-25] MEDS ORDERED: DICYCLOMINE HCL 20 MG TABLET PO ONE (17:42)
[2019-02-25 18:11] VITALS: BP 143/84
== END 2019-02-25 18:15 | disposition home or self-care (01) ==
LOC: ER 13:20
DX: K59.00 Constipation, unspecified (principal); R10.30 Lower abdominal pain, unspecified; R11.10 Vomiting, unspecified; R10.813 Right lower quadrant abdominal tenderness; F12.10 Cannabis abuse, uncomplicated; Z87.442 Personal history of urinary calculi
CPT/HCPCS: 36415; 83690; 85025; 80053; 81001; 74177; J3490; J1885; J2270; J2405; J7030; 96361; 96374; 96375; 99284

== ENCOUNTER 2019-04-03 09:40 | Inpatient (IN) | payer SELFPAY ==
[2019-04-03 10:49] LABS: AMORPHOUS SEDIMENT,URINE TRACE /HPF; APPEARANCE,URINE CLOUDY; BILIRUBIN,URINE NEGATIVE (NEGATIVE); COLOR,URINE YELLOW; GLUCOSE, URINE NEGATIVE (NEGATIVE); KETONES,URINE NEGATIVE (NEGATIVE); LEUKOCYTE ESTERASE,URINE NEGATIVE (NEGATIVE); NITRITE,URINE NEGATIVE (NEGATIVE); PROTEIN,URINE NEGATIVE (NEGATIVE); URINE SPECIFIC GRAVITY 1.009; UROBILINOGEN,URINE NEGATIVE mg/dL (<2.0)
[2019-04-03 11:37] LABS: ABSOLUTE LYMPHOCYTES (AUTO) 1.3 10^3/uL (0.5-4.7); ABSOLUTE MONOCYTES (AUTO) 0.5 10^3/uL (0.1-1.4); ABSOLUTE NEUT (AUTO) 7.7 10^3/uL (1.7-8.2); BASOPHILS % (AUTO) 0.4 % (0-2); HEMATOCRIT 26.2 % (37.9-51.0); HEMOGLOBIN 8.3 g/dL (13.5-17.0); LYMPHOCYTES % (AUTO) 13.9 % (13-45); MEAN CORPUSCULAR HGB CONC 31.7 g/dL (32.0-36.0); MEAN CORPUSCULAR VOLUME 79 fl (80-97); MONOCYTES % (AUTO) 5.6 % (3-13); PLATELET COUNT 871 10^3/uL (150-450); RED BLOOD COUNT 3.33 10^6/uL (4.35-5.55); RED CELL DISTRIBUTION WIDTH 19.6 % (11.5-14.0); SEGMENTED NEUTROPHILS % (AUTO) 80.1 % (42-78); TOTAL CELLS COUNTED % (AUTO) 100 %; WHITE BLOOD COUNT 9.6 10^3/uL (4.0-10.5)
[2019-04-03 11:41] LABS: ALBUMIN 4.4 g/dL (3.5-5.0); ALKALINE PHOSPHATASE 78 U/L (38-126); ANION GAP 9 (5-19); ASPARTATE AMINO TRANSFERASE 27 U/L (17-59); BILIRUBIN,DIRECT 0.1 mg/dL (0.0-0.4); BILIRUBIN,TOTAL 0.2 mg/dL (0.2-1.3); BLOOD UREA NITROGEN 13 mg/dL (7-20); CALCIUM 10.3 mg/dL (8.4-10.2); CARBON DIOXIDE 36 mmol/L (22-30); CHLORIDE 92 mmol/L (98-107); GLUCOSE 132 mg/dL (75-110); POTASSIUM 4.1 mmol/L (3.6-5.0); TOTAL PROTEIN 8.8 g/dL (6.3-8.2)
[2019-04-03] MEDS ORDERED: NORMAL SALINE 1000 ML 1,000 ML IV ONE (12:02)
[2019-04-03] MEDS ORDERED: METOCLOPRAMIDE HCL ORAL SOLN 10 MG/10 ML UDCUP PO ONE (12:03)
[2019-04-03] MEDS ORDERED: LIDOCAINE 2% VISCOUS SOLN 20 ML UDCUP PO ONE (12:03)
[2019-04-03] MEDS ORDERED: MAG HYDROX/AL HYDROX/SIMETH SUSP 30 ML UDCUP PO ONE (12:03)
--- NOTE | 2019-04-03 12:04 | ER Document Report ---
ED Medical Screen (RME) - General Chief Complaint: Nausea/Vomiting Stated Complaint: ABDOMINAL PAIN/VOMITING Time Seen by Provider: 04/03/19 11:56 Notes: 58-year-old healthy male presents the emergency department with chief complaint of epigastric burning pain for the last several days. Patient states that he is complaining of dyspepsia and is constantly burping up. Has not had an appetite and cannot hold anything down since this past . Was seen here recently and imaged. Exam: Well-appearing in mild distress, lungs are clear in all hong, bowel sounds present, abdomen is soft. I have greeted and performed a rapid initial assessment of this patient. A comprehensive ED assessment and evaluation of the patient, analysis of test results and completion of medical decision making process will be conducted by an additional ED providers. TRAVEL OUTSIDE OF THE [place] IN LAST 30 DAYS: No - Related Data Allergies/Adverse Reactions: No Known Allergies Allergy (Verified 11/28/18 11:09) Past Medical History - Social History Chew tobacco use (# tins/day): No Frequency of alcohol use: None Drug Abuse: None Family history: None Renal/ Medical History: Denies: Hx Kidney Stones, Hx Peritoneal Dialysis Past Surgical History: Reports: Hx Orthopedic Surgery - right partial thumb amputation with revision - Immunizations Immunizations up to date: Yes Physical Exam - Vital signs Vitals: Temp Pulse Resp BP Pulse Ox 98.5 F 86 20 133/79 H 98 04/03/19 09:50 04/03/19 09:50 04/03/19 09:50 04/03/19 09:50 04/03/19 09:50 Course - Vital Signs Vital signs: Temp Pulse Resp BP Pulse Ox 98.5 F 86 20 133/79 H 98 04/03/19 09:50 04/03/19 09:50 04/03/19 09:50 04/03/19 09:50 04/03/19 09:50 - Laboratory Result Diagrams: 04/03/19 10:15 04/03/19 10:15 Laboratory results interpreted by me: 04/03/19 10:15 Sodium 136.6 L Chloride 92 L Carbon Dioxide 36 H Glucose 132 H Calcium 10.3 H Total Protein 8.8 H
[2019-04-03 12:12] LABS: ANISOCYTOSIS 2+; PLATELET COMMENT ADEQUATE; TARGET CELLS 1+
--- NOTE | 2019-04-03 12:49 | ER Document Report ---
ED GI/ - General Chief Complaint: Nausea/Vomiting Stated Complaint: ABDOMINAL PAIN/VOMITING Time Seen by Provider: 04/03/19 11:56 Notes: 58-year-old healthy male presents the emergency department with chief complaint of epigastric burning pain for the last several days. Patient states that he is complaining of dyspepsia and is constantly burping up. Has not had an appetite and cannot hold anything down since this past . Patient denies any fevers or chills, denies nausea but complains of vomiting, denies any lower abdominal pain, denies abdominal surgical history, denies constipation. TRAVEL OUTSIDE OF THE [place] IN LAST 30 DAYS: No - Related Data Allergies/Adverse Reactions: No Known Allergies Allergy (Verified 11/28/18 11:09) Past Medical History - Social History Smoking Status: Never Smoker Chew tobacco use (# tins/day): No Frequency of alcohol use: None Drug Abuse: None Family History: Reviewed & Not Pertinent Patient has suicidal ideation: No Patient has homicidal ideation: No Renal/ Medical History: Denies: Hx Kidney Stones, Hx Peritoneal Dialysis Past Surgical History: Reports: Hx Orthopedic Surgery - right partial thumb amputation with revision - Immunizations Immunizations up to date: Yes Review of Systems - Review of Systems Constitutional: See HPI EENT: No symptoms reported Cardiovascular: No symptoms reported Respiratory: No symptoms reported Gastrointestinal: See HPI Genitourinary: See HPI Male Genitourinary: No symptoms reported Musculoskeletal: No symptoms reported Skin: No symptoms reported Hematologic/Lymphatic: No symptoms reported Neurological/Psychological: No symptoms reported Physical Exam - Vital signs Vitals: Temp Pulse Resp BP Pulse Ox 98.5 F 86 20 133/79 H 98 04/03/19 09:50 04/03/19 09:50 04/03/19 09:50 04/03/19 09:50 04/03/19 09:50 - Notes Notes: PHYSICAL EXAMINATION: Reviewed vital signs and charting by RN GENERAL: Alert, interacts well. No acute distress. HEAD: Normocephalic, atraumatic. EYES: Pupils equal and round. Extraocular movements intact. ENT: Oral mucosa moist, tongue midline. NECK: Full range of motion. Trachea midline. LUNGS: Clear to auscultation bilaterally, no wheezes, rales, or rhonchi. No respiratory distress. HEART: Regular rate and rhythm. No murmur ABDOMEN: soft, tenderness to palpation over the right upper quadrant and epigastric region. No distention. Bowel sounds present EXTREMITIES: Moves all 4 extremities spontaneously. No edema, No cyanosis. PSYCH: Normal affect, normal mood. SKIN: Warm, dry, normal turgor. No rashes or lesions noted. Course - Re-evaluation Re-evalutation: 04/03/19 12:48 Well-appearing and nontoxic. Briefly discussed with Dr. Marinelli, attending and plan is to obtain a right upper quadrant ultrasound and will obtain a Hemoccult. I am concerned because his hemoglobin today is 8.3 down from over 11 only 4 weeks ago. Differential includes gastritis versus peptic ulcer disease versus cholelithiasis/cholecystitis. Lipase is normal so I have low suspicion for pancreatitis. Patient is afebrile and does not have a leukocytosis making cholecystitis less likely. 04/03/19 14:58 Patient with a positive Hemoccult. Most likely an upper GI bleed. I called the hospitalist who advised that I call the surgical list prior to admission. I called Dr. Maldonado, surgeon, who agreed to consult on the patient time would proceed and call the hospitalist. 04/03/19 15:[address] Gaytan, hospitalist who agreed to accept the patient to the telemetry floor for full admission. - Vital Signs Vital signs: Temp Pulse Resp BP Pulse Ox 98.7 F 92 15 143/91 H 98 04/03/19 14:30 04/03/19 14:30 04/03/19 14:30 04/03/19 14:30 04/03/19 14:30 - Laboratory Result Diagrams: 04/03/19 10:15 04/03/19 10:15 Laboratory results interpreted by me: 04/03/19 04/03/19 10:15 10:15 RBC 3.33 L Hgb 8.3 L Hct 26.2 L MCV 79 L MCH 25.0 L MCHC 31.7 L RDW 19.6 H Plt Count 871 H Seg Neutrophils % 80.1 H Sodium 136.6 L Chloride 92 L Carbon Dioxide 36 H Glucose 132 H Calcium 10.3 H Total Protein 8.8 H Discharge - Discharge Clinical Impression: Upper GI bleed Gastritis Qualifiers: Gastritis type: unspecified gastritis Chronicity: acute Gastritis bleeding: presence of bleeding unspecified Qualified Code(s): K29.00 - Acute gastritis without bleeding Abdominal pain Qualifiers: Abdominal location: epigastric Qualified Code(s): R10.13 - Epigastric pain Condition: Stable Disposition: ADMITTED INPATIENT Admitting Provider: Lukas (Hospitalist) Unit Admitted: Telemetry
[2019-04-03] MEDS ORDERED: FENTANYL CITRATE INJ/PF 100 MCG/2 ML AMPUL IV ONE (13:33)
[2019-04-03] MEDS ORDERED: PANTOPRAZOLE SODIUM 40 MG VIAL IV SCH (14:58)
--- NOTE | 2019-04-03 15:13 | RADIOLOGY REPORT (SQ) ---
EXAM DESCRIPTION: U/S ABDOMEN LTD W/DOPPLER COMPLETED DATE/TIME: 04/03/2019 2:59 pm REASON FOR STUDY: RUQ/epigastric pain COMPARISON: None. TECHNIQUE: Dynamic and static grayscale images acquired of the abdomen and recorded on PACS. Additio jayson selected color Doppler and spectral images recorded. LIMITATIONS: None. FINDINGS: PANCREAS: No masses. Visualized pancreatic duct normal caliber. LIVER: No masses. Echotexture normal. LIVER VASCULATURE: Normal directional flow of the main portal vein and hepatic veins. GALLBLADDER: No stones. Normal wall thickness. No pericholecystic fluid. ULTRASOUND-DETECTED VALLEJO'S SIGN: Negative. INTRAHEPATIC DUCTS AND COMMON DUCT: CBD and intrahepatic ducts normal caliber. No filling defects. INFERIOR VENA CAVA: Normal flow. AORTA: No aneurysm. RIGHT KIDNEY: Normal size. Normal echogenicity. No solid or suspicious masses. No hydronephrosis. No calcifications. PERITONEAL AND RIGHT PLEURAL SPACE: No ascites or effusions. OTHER: No other significant findings. IMPRESSION: NORMAL RIGHT UPPER QUADRANT ULTRASOUND. TECHNICAL DOCUMENTATION: JOB ID: [id number] [employer]- All Rights Reserved Reading location - IP/workstation name: [email or web address]
--- NOTE | 2019-04-03 16:36 | PDOC CONSULTATION ---
Consultation Consult Date: 04/03/19 Provider Consulted: ESTRADA PETIT Consult reason:: Epigastric pain History of Present Illness Admission Date/PCP: 04/03/19 15:07 Patient complains of: Epigastric pain History of Present Illness: KACEY VALLEJO is a 58 year old male, healthy, with a history of epigastric pain heartburn night vomiting and food regurgitation for the past few weeks. He has a history of heavy use of caffeine, energy drinks, and ibuprofen (multiple times a day). The patient has been admitted by the hospitalist for work-up of his symptoms and to undergo an upper endoscopy. In addition, the patient has been found to be anemic with an H&H of 8.6/24.2, respectively compared to the H&H of 1 month ago 11.2/26.2, respectively. Past Surgical History Past Surgical History: Reports: Orthopedic Surgery - right partial thumb amputation with revision Social History Smoking Status: Never Smoker Electronic Cigarette use?: No Family History Family History: Reviewed & Not Pertinent Parental Family History Reviewed: No Children Family History Reviewed: No Sibling(s) Family History Reviewed.: No Medication/Allergy Allergies/Adverse Reactions: No Known Allergies Allergy (Verified 11/28/18 11:09) Physical Exam Vital Signs: Temp Pulse Resp BP Pulse Ox 98.7 F 92 15 143/91 H 98 04/03/19 14:30 04/03/19 14:30 04/03/19 14:30 04/03/19 14:30 04/03/19 14:30 Intake & Output 04/02/19 04/03/19 04/04/19 06:59 06:59 06:59 Intake Total 1000 Balance 1000 Weight 75.1 kg General appearance: PRESENT: no acute distress Head exam: PRESENT: atraumatic Eye exam: PRESENT: EOMI Mouth exam: PRESENT: neck supple Teeth exam: PRESENT: poor dentation Neck exam: PRESENT: full ROM Respiratory exam: PRESENT: clear to auscultation indira Cardiovascular exam: PRESENT: RRR GI/Abdominal exam: PRESENT: soft, tenderness - epigastrium Rectal exam: PRESENT: deferred Extremities exam: PRESENT: full ROM Musculoskeletal exam: PRESENT: full ROM Neurological exam: PRESENT: alert, awake, oriented to person Psychiatric exam: PRESENT: appropriate affect Skin exam: PRESENT: warm Results Laboratory Results: 04/03/19 10:15 04/03/19 10:15 04/03/19 04/03/19 04/03/19 10:04 10:15 10:15 WBC 9.6 RBC 3.33 L Hgb 8.3 L Hct 26.2 L MCV 79 L MCH 25.0 L MCHC 31.7 L RDW 19.6 H Plt Count 871 H Seg Neutrophils % 80.1 H Sodium 136.6 L Potassium 4.1 Chloride 92 L Carbon Dioxide 36 H Anion Gap 9 BUN 13 Creatinine 1.01 Est GFR ( Amer) > 60 Glucose 132 H Calcium 10.3 H Total Bilirubin 0.2 AST 27 Alkaline Phosphatase 78 Total Protein 8.8 H Albumin 4.4 Lipase 98.2 Urine Color YELLOW Urine Appearance CLOUDY Urine pH 9.0 Ur Specific [place] 1.009 Urine Protein NEGATIVE Urine Glucose (UA) NEGATIVE Urine Ketones NEGATIVE Urine Blood NEGATIVE Urine Nitrite NEGATIVE Ur Leukocyte Esterase NEGATIVE Urine WBC (Auto) 3 Urine RBC (Auto) 1 Impressions: Abdomen Ultrasound 04/03/19 12:46 IMPRESSION: NORMAL RIGHT UPPER QUADRANT ULTRASOUND. Assessment & Plan - Diagnosis (1) Anemia Qualifiers: Other causes of anemia: other cause, not classified (2) Epigastric abdominal pain Is this a current diagnosis for this admission?: Yes (3) Abdominal pain Qualifiers: Abdominal location: epigastric Qualified Code(s): R10.13 - Epigastric pain Is this a current diagnosis for this admission?: Yes - Plan Summary Plan Summary: Assessment: Epigastric pain, GERD, vomiting, food reflux Abuse of ibuprofen as well as coffee and energy drinks Recent identification of anemia with a hemoglobin/hematocrit of 8.3/26.2 respectively compared to a hemoglobin / hematocrit of 1 month ago (11.2/36.3). Plan: N.p.o. after midnight Antiacid administered as per hospitalist EGD with biopsy by Dr. Jang tomorrow Procedure, risks, benefits, complications, alternatives explained to the patient his questions answered, he decides to proceed
--- NOTE | 2019-04-03 16:47 | PDOC H&P ---
History of Present Illness Admission Date/PCP: 04/03/19 15:07 History of Present Illness: KACEY VALLEJO is a 58 year old male with no previous medical history who presents with nausea and vomiting. He came to this hospital about a month ago complaining of abdominal pain and his work-up was negative and they got him feeling a little bit better and so he went home. He says that he drinks between 2 to 4 cups of coffee a day and drinks energy drinks all day and has been taking a lot of ibuprofen, off and on an empty stomach. He does not smoke. He says he usually eats pretty healthy but he eats a lot of protein drinks and meal supplements and does not always eat enough fresh fruits and vegetables. He said he drank some orange juice this morning and threw that up. He was feeling awful and so EMS was called and brought him into the hospital. Here he was found out that his hemoglobin is dropped 3 points from where it was a month ago. He had been complaining of his stools getting darker over the last couple of weeks. His Hemoccult was positive. He is being admitted for further evaluation. He is never had a history of ulcers before. Past Surgical History Past Surgical History: Reports: Orthopedic Surgery - right partial thumb amputation with revision Social History Smoking Status: Never Smoker Electronic Cigarette use?: No Family History Family History: Reviewed & Not Pertinent Parental Family History Reviewed: Yes Children Family History Reviewed: Yes Sibling(s) Family History Reviewed.: Yes Medication/Allergy Allergies/Adverse Reactions: No Known Allergies Allergy (Verified 11/28/18 11:09) Review of Systems All systems: reviewed and no additional remarkable complaints except as stated - All systems were reviewed and were negative except as noted above Physical Exam Vital Signs: Temp Pulse Resp BP Pulse Ox 98.7 F 92 15 143/91 H 98 04/03/19 14:30 04/03/19 14:30 04/03/19 14:30 04/03/19 14:30 04/03/19 14:30 Intake & Output 04/02/19 04/03/19 04/04/19 06:59 06:59 06:59 Intake Total 1000 Balance 1000 Weight 75.1 kg General appearance: PRESENT: no acute distress, cooperative Head exam: PRESENT: atraumatic, normocephalic Eye exam: PRESENT: conjunctival injection, EOMI, PERRLA. ABSENT: nystagmus, scleral icterus Ear exam: PRESENT: normal external ear exam Mouth exam: PRESENT: moist, neck supple Teeth exam: PRESENT: poor dentation Throat exam: ABSENT: post pharyngeal erythema Neck exam: PRESENT: full ROM. ABSENT: carotid bruit, JVD, lymphadenopathy, meningismus, tenderness, thyromegaly Respiratory exam: PRESENT: clear to auscultation indira, symmetrical, unlabored. ABSENT: accessory muscle use, chest wall tenderness, crackles, prolonged expiratory phas, rhonchi, tachypnea, wheezes Cardiovascular exam: PRESENT: RRR, +S1, +S2 Pulses: PRESENT: normal carotid pulses Vascular exam: PRESENT: normal capillary refill GI/Abdominal exam: PRESENT: normal bowel sounds, soft. ABSENT: distended, guarding, rebound, tenderness Extremities exam: ABSENT: clubbing, pedal edema Musculoskeletal exam: PRESENT: normal inspection. ABSENT: deformity Neurological exam: PRESENT: alert, awake, oriented to person, oriented to place, oriented to time, oriented to situation, CN II-XII grossly intact. ABSENT: motor sensory deficit Psychiatric exam: PRESENT: appropriate affect, normal mood Skin exam: PRESENT: dry, warm Results Laboratory Results: 04/03/19 10:15 04/03/19 10:15 04/03/19 04/03/19 04/03/19 10:04 10:15 10:15 WBC 9.6 RBC 3.33 L Hgb 8.3 L Hct 26.2 L MCV 79 L MCH 25.0 L MCHC 31.7 L RDW 19.6 H Plt Count 871 H Seg Neutrophils % 80.1 H Sodium 136.6 L Potassium 4.1 Chloride 92 L Carbon Dioxide 36 H Anion Gap 9 BUN 13 Creatinine 1.01 Est GFR ( Amer) > 60 Glucose 132 H Calcium 10.3 H Total Bilirubin 0.2 AST 27 Alkaline Phosphatase 78 Total Protein 8.8 H Albumin 4.4 Lipase 98.2 Urine Color YELLOW Urine Appearance CLOUDY Urine pH 9.0 Ur Specific [place] 1.009 Urine Protein NEGATIVE Urine Glucose (UA) NEGATIVE Urine Ketones NEGATIVE Urine Blood NEGATIVE Urine Nitrite NEGATIVE Ur Leukocyte Esterase NEGATIVE Urine WBC (Auto) 3 Urine RBC (Auto) 1 Impressions: Abdomen Ultrasound 04/03/19 12:46 IMPRESSION: NORMAL RIGHT UPPER QUADRANT ULTRASOUND. Assessment and Plan - Diagnosis (1) Acute blood loss anemia Is this a current diagnosis for this admission?: Yes Plan: We will check his H&H every 6 hours, not to the point where he needs a transfusion yet but will monitor him closely. (2) Upper GI bleed Is this a current diagnosis for this admission?: Yes Plan: Put him on clear liquids for now, Protonix IV twice daily, n.p.o. after midnight, surgeries been consulted for EGD. - Time Time Spent with patient: 35 or more minutes - Inpatient Certification Based on my medical assessment, after consideration of the patient's comorbidities, presenting symptoms, or acuity I expect that the services needed warrant INPATIENT care.: Yes I certify that my determination is in accordance with my understanding of Medic are's requirements for reasonable and necessary INPATIENT services [42 CFR 412.3e].: Yes Medical Necessity: Need Close Monitoring Due to Risk of Patient Decompensation, Need For Continuous Telemetry Monitoring, Need for Surgery
[2019-04-03 17:59] LABS: HEMATOCRIT 23.3 % (37.9-51.0); MEAN CORPUSCULAR HGB CONC 32.1 g/dL (32.0-36.0); MEAN CORPUSCULAR VOLUME 78 fl (80-97); PLATELET COUNT 698 10^3/uL (150-450); RED CELL DISTRIBUTION WIDTH 19.8 % (11.5-14.0); WHITE BLOOD COUNT 9.9 10^3/uL (4.0-10.5)
[2019-04-03 18:01] LABS: HEMOGLOBIN 7.5 g/dL (13.5-17.0)
[2019-04-03] MEDS ORDERED: MAG HYDROX/AL HYDROX/SIMETH SUSP 30 ML UDCUP PO PRN (18:05)
[2019-04-03] MEDS: PANTOPRAZOLE SODIUM 40 MG VIAL IV SCH (21:55)
[2019-04-04 01:00] LABS: HEMATOCRIT 22.9 % (37.9-51.0); MEAN CORPUSCULAR HEMOGLOBIN 24.5 pg (27.0-33.4); MEAN CORPUSCULAR HGB CONC 31.7 g/dL (32.0-36.0); MEAN CORPUSCULAR VOLUME 77 fl (80-97); PLATELET COUNT 685 10^3/uL (150-450); RED BLOOD COUNT 2.96 10^6/uL (4.35-5.55); RED CELL DISTRIBUTION WIDTH 19.2 % (11.5-14.0)
[2019-04-04 01:14] LABS: HEMOGLOBIN 7.3 g/dL (13.5-17.0)
[2019-04-04 07:01] LABS: HEMATOCRIT 22.3 % (37.9-51.0); MEAN CORPUSCULAR HEMOGLOBIN 25.6 pg (27.0-33.4); MEAN CORPUSCULAR HGB CONC 32.8 g/dL (32.0-36.0); MEAN CORPUSCULAR VOLUME 78 fl (80-97); PLATELET COUNT 713 10^3/uL (150-450); RED BLOOD COUNT 2.86 10^6/uL (4.35-5.55); RED CELL DISTRIBUTION WIDTH 19.7 % (11.5-14.0)
[2019-04-04 07:07] LABS: HEMOGLOBIN 7.3 g/dL (13.5-17.0)
[2019-04-04 07:20] LABS: ANION GAP 9 (5-19); BLOOD UREA NITROGEN 10 mg/dL (7-20); CALCIUM 9.3 mg/dL (8.4-10.2); CARBON DIOXIDE 27 mmol/L (22-30); CHLORIDE 101 mmol/L (98-107); GLUCOSE 88 mg/dL (75-110); POTASSIUM 4.9 mmol/L (3.6-5.0)
[2019-04-04] MEDS: PANTOPRAZOLE SODIUM 40 MG VIAL IV SCH ×2 (09:32→21:39)
--- NOTE | 2019-04-04 12:09 | PDOC PROGRESS REPORT ---
Subjective Progress Note for:: 04/04/19 Reason For Visit: UPPER GI BLEED, GASTRITIS, ABDOMINAL PAIN 04/04/2019 Patient has heme positive dark stools. Globin went from 8.3-7.3 She is scheduled for EGD today. Physical Exam Vital Signs: Temp Pulse Resp BP Pulse Ox 98.2 F 76 20 120/73 100 04/04/19 10:56 04/04/19 10:56 04/04/19 10:56 04/04/19 10:56 04/04/19 10:56 Intake & Output 04/03/19 04/04/19 04/05/19 06:59 06:59 06:59 Intake Total 1000 Balance 1000 Weight 74.4 kg General appearance: PRESENT: no acute distress, other - Leaping arouses easily waiting for his EGD to be done today Respiratory exam: PRESENT: clear to auscultation indira. ABSENT: rales, rhonchi, wheezes Cardiovascular exam: PRESENT: RRR. ABSENT: diastolic murmur, rubs, systolic murmur Neurological exam: PRESENT: alert, awake, oriented to person, oriented to place, oriented to time, oriented to situation, CN II-XII grossly intact. ABSENT: motor sensory deficit Psychiatric exam: PRESENT: appropriate affect, normal mood. ABSENT: homicidal ideation, suicidal ideation Results Laboratory Results: 04/04/19 06:20 04/04/19 06:20 04/03/19 04/03/19 04/04/19 10:15 17:45 00:31 WBC 9.6 9.9 10.0 RBC 3.33 L 3.00 L 2.96 L Hgb 8.3 L 7.5 L 7.3 L Hct 26.2 L 23.3 L 22.9 L MCV 79 L 78 L 77 L MCH 25.0 L 25.0 L 24.5 L MCHC 31.7 L 32.1 31.7 L RDW 19.6 H 19.8 H 19.2 H Plt Count 871 H 698 H 685 H Seg Neutrophils % 80.1 H Sodium Potassium Chloride Carbon Dioxide Anion Gap BUN Creatinine Est GFR ( Amer) Glucose Calcium 04/04/19 04/04/19 06:20 06:20 WBC 8.0 RBC 2.86 L Hgb 7.3 L Hct 22.3 L MCV 78 L MCH 25.6 L MCHC 32.8 RDW 19.7 H Plt Count 713 H Seg Neutrophils % Sodium 137.4 Potassium 4.9 Chloride 101 Carbon Dioxide 27 Anion Gap 9 BUN 10 Creatinine 0.98 Est GFR ( Amer) > 60 Glucose 88 Calcium 9.3 Impressions: Abdomen Ultrasound 04/03/19 12:46 IMPRESSION: NORMAL RIGHT UPPER QUADRANT ULTRASOUND. Assessment and Plan - Diagnosis (1) Abdominal pain Qualifiers: Abdominal location: epigastric Qualified Code(s): R10.13 - Epigastric pain Is this a current diagnosis for this admission?: Yes (2) Anemia Qualifiers: Other causes of anemia: other cause, not classified Is this a current diagnosis for this admission?: Yes (3) Upper GI bleed Is this a current diagnosis for this admission?: Yes - Plan Summary Summary: 04/04/2019 Patient scheduled for an upper endoscopy today by general surgery. Patient was admitted through the emergency room for nausea and vomiting, found to have a drop in his hemoglobin from previous admission 1 month ago. At that time hemoglobin was 11.2. Patient is hemodynamically stable, pulse of 76 blood pressure 115/77 O2 sat 100% on room air Hemoglobin has stabilized at 7.3, platelets still elevated at 713,000 Electrolytes are normal - Time Time Spent with patient: 25-34 minutes
[2019-04-04] MEDS ORDERED: PROPOFOL INJ 200 MG/20 ML VIAL IV ONE (13:17)
[2019-04-04] MEDS ORDERED: LIDOCAINE 2% INJ (20 MG/ML) 20 ML MDV ONE (13:21)
--- NOTE | 2019-04-04 15:21 | PDOC PROGRESS REPORT ---
Subjective Progress Note for:: 04/04/19 Subjective:: Is a 58-year-old male with abdominal pain, anemia, and a history of NSAID use and caffeine use. He still complains of epigastric abdominal pain, boring through to his back. He denies shortness of breath or chest pain. He denies dizziness, orthostasis, blurry vision,. He has had some nausea, but denies recent vomiting. Reason For Visit: UPPER GI BLEED, GASTRITIS, ABDOMINAL PAIN Physical Exam Vital Signs: Temp Pulse Resp BP Pulse Ox 98.4 F 74 13 113/72 100 04/04/19 14:25 04/04/19 14:25 04/04/19 14:25 04/04/19 14:25 04/04/19 14:25 Intake & Output 04/03/19 04/04/19 04/05/19 06:59 06:59 06:59 Intake Total 1000 500 Balance 1000 500 Weight 74.4 kg 74.4 kg General appearance: PRESENT: no acute distress, cooperative Head exam: PRESENT: atraumatic, normocephalic Eye exam: PRESENT: EOMI, PERRLA. ABSENT: scleral icterus Mouth exam: PRESENT: moist, neck supple Neck exam: ABSENT: tenderness, thyromegaly, tracheostomy Respiratory exam: PRESENT: unlabored. ABSENT: chest wall tenderness, tachypnea, wheezes Cardiovascular exam: PRESENT: RRR Pulses: PRESENT: normal radial pulses GI/Abdominal exam: PRESENT: soft. ABSENT: distended, firm, guarding, tenderness Rectal exam: PRESENT: deferred Extremities exam: ABSENT: clubbing Neurological exam: PRESENT: alert, awake, oriented to person, oriented to place, oriented to time, oriented to situation, CN II-XII grossly intact Psychiatric exam: ABSENT: agitated, anxious, depressed Focused psych exam: ABSENT: delusional Skin exam: ABSENT: cyanosis, erythema, jaundice Results Laboratory Results: 04/04/19 06:20 04/04/19 06:20 04/03/19 04/04/19 04/04/19 17:45 00:31 06:20 WBC 9.9 10.0 8.0 RBC 3.00 L 2.96 L 2.86 L Hgb 7.5 L 7.3 L 7.3 L Hct 23.3 L 22.9 L 22.3 L MCV 78 L 77 L 78 L MCH 25.0 L 24.5 L 25.6 L MCHC 32.1 31.7 L 32.8 RDW 19.8 H 19.2 H 19.7 H Plt Count 698 H 685 H 713 H Sodium Potassium Chloride Carbon Dioxide Anion Gap BUN Creatinine Est GFR ( Amer) Glucose Calcium 04/04/19 06:20 WBC RBC Hgb Hct MCV MCH MCHC RDW Plt Count Sodium 137.4 Potassium 4.9 Chloride 101 Carbon Dioxide 27 Anion Gap 9 BUN 10 Creatinine 0.98 Est GFR ( Amer) > 60 Glucose 88 Calcium 9.3 Impressions: Abdomen Ultrasound 04/03/19 12:46 IMPRESSION: NORMAL RIGHT UPPER QUADRANT ULTRASOUND. Assessment & Plan - Diagnosis (1) Acute blood loss anemia Is this a current diagnosis for this admission?: Yes (2) Epigastric abdominal pain Is this a current diagnosis for this admission?: Yes (3) Upper GI bleed Is this a current diagnosis for this admission?: Yes - Time Time Spent with patient: Less than 15 minutes - Plan Summary Plan Summary: This a 58-year-old male with symptoms consistent of gastritis and/or peptic ulcer disease. The patient is scheduled for EGD today. Risks/benefits discussed, informed consent obtained, and all questions answered.
--- NOTE | 2019-04-04 15:30 | Operative Report ---
Nonrecallable Operative Report DATE OF SURGERY: 04/04/19 PREOPERATIVE DIAGNOSIS: Peptic ulcer disease, abdominal pain POSTOPERATIVE DIAGNOSIS: 1. Large, prepyloric gastric ulcer. 2. No evidence of active bleeding. 3. Sliding hiatal hernia OPERATION: EGD with biopsy SURGEON: LENIN WILSON ANESTHESIA: GA TISSUE REMOVED OR ALTERED: 1. Margin of gastric ulcer. 2. Base of gastric ulcer. 3. Antrum biopsy for H. pylori rule-out. COMPLICATIONS: None apparent ESTIMATED BLOOD LOSS: Minimal PROCEDURE: Procedure in detail: After informed consent was obtained, the patient was brought to the operating room and laid in the left lateral decubitus position. The endoscope was passed down the oropharynx, down the esophagus, and into the stomach. The stomach was insufflated with air. There was a large gastric ulcer in the prepyloric position. There was some gastritis throughout the wall of the body of the stomach. The scope was pushed through the pylorus and into the first and second portions of the duodenum. The duodenum appeared normal. The scope was withdrawn into the stomach. Biopsies were taken at the margin of the ulcer, as well as within the base of the ulcer. The scope was withdrawn into the antrum of the stomach. The antrum was biopsied to rule out H. pylori infection. A retroflexion maneuver was performed in the body of the stomach. A sliding hiatal hernia was identified. The scope was withdrawn up into the distal esophagus. There was a small amount of reflux esophagitis present. The scope was withdrawn up the remainder of the esophagus. The remainder of the esophagus was smooth in contour without masses, lesions, or other abnormalities. The scope was then removed from the patient. The procedure at this time was concluded. All sponge, instrument, and needle counts were correct x2. Condition: Stable.
--- NOTE | 2019-04-04 15:35 | Progress Note ---
Provider Note Provider Note: The patient was found to have a large prepyloric ulcer on EGD without signs of active bleeding. Most likely, this is related to his high NSAID and caffeine intake. Biopsies were taken of the ulcer to rule out malignancy. Biopsies were also taken to rule out H. pylori infection. Await biopsy results. Add Carafate to the patient's medication regimen. Okay for discharge from a surgical standpoint. Follow-up with [facility] in 7 days. Surgery will sign off for now. Please renotify with any questions or concerns.
[2019-04-04] MEDS: SUCRALFATE 1 GM TABLET PO SCH ×2 (16:43→21:39)
[2019-04-05] MEDS: SUCRALFATE 1 GM TABLET PO SCH ×2 (08:24→11:10)
[2019-04-05] MEDS: PANTOPRAZOLE SODIUM 40 MG VIAL IV SCH (09:53)
[2019-04-05 12:37] VITALS: BP 115/75
--- NOTE | 2019-04-05 13:52 | PDOC DISCHARGE SUMMARY ---
Impression - Admit/DC Date/PCP Admission Date/Primary Care Provider: 04/03/19 15:07 Discharge Date: 04/05/19 - Discharge Diagnosis (1) Abdominal pain Is this a current diagnosis for this admission?: Yes (2) Anemia Is this a current diagnosis for this admission?: Yes (3) Upper GI bleed Is this a current diagnosis for this admission?: Yes (4) Acute prepyloric ulcer Is this a current diagnosis for this admission?: Yes (5) Vomiting Is this a current diagnosis for this admission?: Yes - Assessment Summary: 04/04/2019 Patient scheduled for an upper endoscopy today by general surgery. Patient was admitted through the emergency room for nausea and vomiting, found to have a drop in his hemoglobin from previous admission 1 month ago. At that time hemoglobin was 11.2. Patient is hemodynamically stable, pulse of 76 blood pressure 115/77 O2 sat 100% on room air Hemoglobin has stabilized at 7.3, platelets still elevated at 713,000 Electrolytes are normal 04 05 19 Patient was discharged home today in good condition to follow-up with surgical clinic in 7 days. Patient was sent out with Protonix 40 mg twice daily for 30 days Carafate 1 g before meals and at bedtime for 30 days. Biopsy results are pending for H. pylori. Patient is to remain out of work until he is follow-up visit to surgery clinic. Patient appears to be medically stable for discharge - Additional Information Resuscitation Status: Full Code Discharge Diet: As Tolerated, Regular Discharge Activity: Balance Activity w/Rest Referrals: [facility] [Provider Group] - 04/11/19 1:15 pm (Appointment with Dr. Pathak) Prescriptions: Sucralfate [Carafate 1 gm Tablet] 1 gm PO ACHS #120 tablet Pantoprazole Sodium [Protonix IV Inj 40 mg Vial] 40 mg PO Q12 30 Days #60 vial Home Medications: Mag Hydrox/Al Hydrox/Simeth [Maalox Plus Susp 30 Udcup] 30 ml PO Q4HP PRN udc 04/05/19 Pantoprazole Sodium [Protonix IV Inj 40 mg Vial] 40 mg PO Q12 30 Days #60 vial 04/05/19 Sucralfate [Carafate 1 gm Tablet] 1 gm PO ACHS #120 tablet 04/05/19 History of Present Illiness History of Present Illness: KACEY VALLEJO is a 58 year old male Physical Exam Vital Signs: Temp Pulse Resp BP Pulse Ox 97.9 F 66 14 115/75 100 04/05/19 12:31 04/05/19 12:31 04/05/19 12:31 04/05/19 12:31 04/05/19 12:31 Intake & Output 04/04/19 04/05/19 04/06/19 06:59 06:59 06:59 Intake Total 1000 500 Balance 1000 500 Weight 74.4 kg 74.4 kg Results Laboratory Results: WBC 8.0 10^3/uL (4.0-10.5) 04/04/19 06:20 RBC 2.86 10^6/uL (4.35-5.55) L 04/04/19 06:20 Hgb 7.3 g/dL (13.5-17.0) L 04/04/19 06:20 Hct 22.3 % (37.9-51.0) L 04/04/19 06:20 MCV 78 fl (80-97) L 04/04/19 06:20 MCH 25.6 pg (27.0-33.4) L 04/04/19 06:20 MCHC 32.8 g/dL (32.0-36.0) 04/04/19 06:20 RDW 19.7 % (11.5-14.0) H 04/04/19 06:20 Plt Count 713 10^3/uL (150-450) H 04/04/19 06:20 Lymph % (Auto) 13.9 % (13-45) 04/03/19 10:15 [place] % (Auto) 5.6 % (3-13) 04/03/19 10:15 Eos % (Auto) 0.0 % (0-6) 04/03/19 10:15 Baso % (Auto) 0.4 % (0-2) 04/03/19 10:15 Absolute Neuts (auto) 7.7 10^3/uL (1.7-8.2) 04/03/19 10:15 Absolute Lymphs (auto) 1.3 10^3/uL (0.5-4.7) 04/03/19 10:15 Absolute Monos (auto) 0.5 10^3/uL (0.1-1.4) 04/03/19 10:15 Absolute Eos (auto) 0.0 10^3/uL (0.0-0.6) 04/03/19 10:15 Absolute Basos (auto) 0.0 10^3/uL (0.0-0.2) 04/03/19 10:15 Seg Neutrophils % 80.1 % (42-78) H 04/03/19 10:15 Platelet Comment ADEQUATE 04/03/19 10:15 Anisocytosis 2+ 04/03/19 10:15 Microcytosis 1+ 04/03/19 10:15 Target Cells 1+ 04/03/19 10:15 Sodium 137.4 mmol/L (137-145) 04/04/19 06:20 Potassium 4.9 mmol/L (3.6-5.0) 04/04/19 06:20 Chloride 101 mmol/L (98-107) 04/04/19 06:20 Carbon Dioxide 27 mmol/L (22-30) 04/04/19 06:20 Anion Gap 9 (5-19) 04/04/19 06:20 BUN 10 mg/dL (7-20) 04/04/19 06:20 Creatinine 0.98 mg/dL (0.52-1.25) 04/04/19 06:20 Est GFR ( Amer) > 60 (>60) 04/04/19 06:20 Est GFR (MDRD) Non-Af > 60 (>60) 04/04/19 06:20 Glucose 88 mg/dL (75-110) 04/04/19 06:20 Calcium 9.3 mg/dL (8.4-10.2) 04/04/19 06:20 Total Bilirubin 0.2 mg/dL (0.2-1.3) 04/03/19 10:15 Direct Bilirubin 0.1 mg/dL (0.0-0.4) 04/03/19 10:15 Neonat Total Bilirubin Not Reportable 04/03/19 10:15 Neonat Direct Bilirubin Not Reportable 04/03/19 10:15 Neonat Indirect Bili Not Reportable 04/03/19 10:15 AST 27 U/L (17-59) 04/03/19 10:15 ALT 15 U/L (<50) 04/03/19 10:15 Alkaline Phosphatase 78 U/L (38-126) 04/03/19 10:15 Total Protein 8.8 g/dL (6.3-8.2) H 04/03/19 10:15 Albumin 4.4 g/dL (3.5-5.0) 04/03/19 10:15 Lipase 98.2 U/L (23-300) 04/03/19 10:15 Urine Color YELLOW 04/03/19 10:04 Urine Appearance CLOUDY 04/03/19 10:04 Urine pH 9.0 (5.0-9.0) 04/03/19 10:04 Ur Specific [place] 1.009 04/03/19 10:04 Urine Protein NEGATIVE mg/dL (NEGATIVE) 04/03/19 10:04 Urine Glucose (UA) NEGATIVE mg/dL (NEGATIVE) 04/03/19 10:04 Urine Ketones NEGATIVE mg/dL (NEGATIVE) 04/03/19 10:04 Urine Blood NEGATIVE (NEGATIVE) 04/03/19 10:04 Urine Nitrite NEGATIVE (NEGATIVE) 04/03/19 10:04 Urine Bilirubin NEGATIVE (NEGATIVE) 04/03/19 10:04 Urine Urobilinogen NEGATIVE mg/dL (<2.0) 04/03/19 10:04 Ur Leukocyte Esterase NEGATIVE (NEGATIVE) 04/03/19 10:04 Urine WBC (Auto) 3 /HPF 04/03/19 10:04 Urine RBC (Auto) 1 /HPF 04/03/19 10:04 Squamous Epi Cells Auto <1 /HPF 04/03/19 10:04 Amorphous Sediment Auto TRACE /HPF 04/03/19 10:04 Urine Mucus (Auto) RARE /LPF 04/03/19 10:04 Urine Ascorbic Acid NEGATIVE (NEGATIVE) 04/03/19 10:04 POC Stool Occult Blood POSITIVE (NEGATIVE) 04/03/19 14:55 Impressions: Abdomen Ultrasound 04/03/19 12:46 IMPRESSION: NORMAL RIGHT UPPER QUADRANT ULTRASOUND. Stroke Is this a Stroke Patient?: No Acute Heart Failure - Is this a Heart Failure Patient?: No
== END 2019-04-05 14:46 | disposition home or self-care (01) | DRG 378 ==
LOC: ER 09:40 → EH 15:07 → 5 16:40
PROVIDERS: ADMIT Family Medicine; ATTEND Family Medicine
PROC: 0DB78ZX Excision of Stomach, Pylorus, Via Natural or Artificial Opening Endoscopic, Diagnostic (ICD-10-PCS; principal; 2019-04-04 13:00)
DX: K92.2 Gastrointestinal hemorrhage, unspecified (principal); D62 Acute posthemorrhagic anemia; K25.3 Acute gastric ulcer without hemorrhage or perforation; F15.90 Other stimulant use, unspecified, uncomplicated; K44.9 Diaphragmatic hernia without obstruction or gangrene; K21.0 Gastro-esophageal reflux disease with esophagitis
CPT/HCPCS: 36415; 731; 76705; 80048; 80053; 81001; 83690; 85025; 85027; 88305; 88342; 93976; 96361; 96374; 99285; C9113; J2704; J3010; J3490; J7030